=== PATIENT | female | born 1940 | race Caucasian/White ===

== ENCOUNTER 2017-02-09 18:31 | Observation (INO) | payer OTHER, MEDICARE ==
[~2017-02-09] VITALS: Ht 152.4 cm; Wt 62.5 kg
[~2017-02-09 18:31] MED LIST: Aspirin E.C. PO; GLUCAGEN1 MG IM/SC; K-Dur PO; LANTUS 3 M100 UNITS1 SC; LEVOTHYROXINE75 MCG PO; Levothroid,Synthroid PO; Lipitor PO; Lopressor PO; NOVOLOG PE100 UNITS/ SC; PROzac PO; Plavix PO; TYLENOL REGULA325 MG PO; VENLAFAXINE HC150 M1 PO; Zestril,Prinivil PO; Zofran IV
[2017-02-09 19:24] LABS: MCH 32.3 PG (29.0-34.0); MCHC 32.4 G/DL (30.0-36.0); MCV 99.8 FL (83-99); MEAN PLAT.VOLUME 10.7 uM^3 (9.5-12.4); PLATELET COUNT 217 K/uL (156-360); RBC DIS.WIDTH-CV 12.7 % (11.8-14.6); RBC DIS.WIDTH-SD 46.9 % (39-53); RED BLOOD COUNT 4.21 M/uL (3.80-5.20); WHITE BLOOD COUNT 16.5 K/uL (4.1-10.2)
[2017-02-09 19:38] LABS: CHLORIDE 104 mEq/L (99-109); POTASSIUM 4.6 mEq/L (3.7-5.4); SODIUM 137 mEq/L (136-147)
[2017-02-09 19:40] LABS: GLUCOSE 176 mg/dL (70-99)
[2017-02-09 19:41] LABS: ANION GAP 15 MEQ/L (2-14)
[2017-02-09 19:44] LABS: GFR ESTIMATE (CALCULATED) 52 mL/min/
[2017-02-09 19:45] LABS: UREA NITROGEN (BUN) 25 mg/dL (9-23)
[2017-02-09 21:37] LABS: BASOPHIL COUNT 0.1 K/uL (0-0.1); EOSINOPHIL (%) 0.2 % (0-5); IMMATURE GRANULOCYTE (%) 0.4 % (0.0-0.7); IMMATURE GRANULOCYTE COUNT 0.1 K/uL; LYMPHOCYTE COUNT 1.1 K/uL (1.0-2.8); MONOCYTE (%) 6.6 % (3-12); MONOCYTE COUNT 1.1 K/uL (0-0.8); NEUTROPHIL (%) 85.6 % (45-76); NEUTROPHIL COUNT 13.8 K/uL (1.8-6.4)
[2017-02-09 21:50] LABS: TOTAL BILIRUBIN 0.6 mg/dL (0.0-1.0)
[2017-02-09 21:51] LABS: ALKALINE PHOSPHATASE 61 IU/L (3-129)
[2017-02-09 21:53] LABS: DIRECT BILIRUBIN 0.2 mg/dL (0.0-0.3)
[2017-02-09 22:16] LABS: ADD MIUA? YES; BILIRUBIN NEGATIVE; BLOOD SMALL; COLOR YELLOW ((YELLOW)); GLUCOSE (STRIP) NEGATIVE; KETONES 20; LEUKOCYTES NEGATIVE; NITRITE NEGATIVE; PROTEIN (STRIP) NEGATIVE; SPECIFIC GRAVITY 1.023 (1.000-1.030); UROBILINOGEN 0.2 MG/DL (0.2-1.0)
[2017-02-09 22:30] LABS: BACTERIA NONE SEEN /HPF; EPITHELIAL CELLS RARE /HPF; MUCUS 2+ /LPF; RED BLOOD CELLS 0-5 /HPF (0-5); UNCLASSIFIED CASTS 0-5 /LPF; WHITE BLOOD CELLS 0-5 /HPF (0-5)
[2017-02-09 23:37] LABS: SERUM ETHYL ALCOHOL < 10 mg/dL
[2017-02-10] MEDS ORDERED: K-DUR20 MEQ PO (00:27)
[2017-02-10] MEDS ORDERED: SIMVASTATIN40 MG PO (00:29)
[2017-02-10] MEDS ORDERED: GLIMEPIRIDE4 MG PO (00:30)
[2017-02-10] MEDS ORDERED: PLAVIX75 MG PO (00:30)
[2017-02-10] MEDS ORDERED: LEVOTHYROXINE50 MCG PO (00:30)
[2017-02-10] MEDS ORDERED: PROZAC10 MG PO (00:30)
[2017-02-10] MEDS ORDERED: LISINOPRIL5 MG PO (00:31)
[2017-02-10] MEDS ORDERED: DONEPEZIL HCL5 MG PO (00:31)
[2017-02-10] MEDS ORDERED: LOPRESSOR25 MG PO (00:32)
[2017-02-10 01:00] LABS: AMPHETAMINE NEGATIVE (500 ng/mL); BENZODIAZEPINES NEGATIVE (150 ng/mL); COCAINE NEGATIVE (150 ng/mL); METHAMPHETAMINE NEGATIVE (500 ng/mL); OPIATES (MORPHINE) NEGATIVE (100 ng/mL); PHENCYCLIDINE NEGATIVE (25 ng/mL); THC CANNABINOIDS NEGATIVE (50 ng/mL)
[2017-02-10 01:01] LABS: BARBITURATES NEGATIVE (200 ng/mL); INTERNAL CONTROLS VALID? YES; METHADONE NEGATIVE (200 ng/mL); OXYCODONE NEGATIVE (100 ng/mL); PROPOXYPHENE NEGATIVE (300 ng/mL); TRICYCLIC ANTIDEPRESSANTS NEGATIVE (300 ng/mL)
[2017-02-10 02:07] VITALS: BP 154/70
[2017-02-10 05:03] VITALS: BP 145/66
[2017-02-10 07:20] VITALS: BP 137/64
[2017-02-10 07:22] VITALS: BP 132/58
[2017-02-10 07:24] VITALS: BP 124/62
[2017-02-10] MEDS ORDERED: LO-DOSE ASPIRIN81 M2 PO (13:57)
[2017-02-10 15:11] LABS: HDL CHOLESTEROL 41 MG/DL (Desirable>=50); LDL CHOLESTEROL 84 mg/dL (Desirable<100); NON-HDL CHOLESTEROL 102 mg/dL (Desirable<160); TOTAL CHOLESTEROL 143 mg/dL (Desirable<200); TRIGLYCERIDES 91 MG/DL (Normal: <150)
[2017-02-10 16:29] LABS: Estimated Average Glucose 126 mg/dL (70-123)
== END 2017-02-10 15:40 | disposition home or self-care (01) ==
LOC: EME 18:31 → 5WEST 23:26 → EDOF 23:26 → 5WEST 02-10 00:58
PROVIDERS: Emergency Medicine; Internal Medicine
DX: G45.9 Transient cerebral ischemic attack, unspecified (principal); R55 Syncope and collapse; I10 Essential (primary) hypertension; E03.9 Hypothyroidism, unspecified; E78.5 Hyperlipidemia, unspecified; G30.9 Alzheimer's disease, unspecified; F02.80 Dementia in other diseases classified elsewhere, unspecified severity, without behavioral disturbance, psychotic disturbance, mood disturbance, and anxiety; Z86.73 Personal history of transient ischemic attack (TIA), and cerebral infarction without residual deficits
CPT/HCPCS: 70450; 70551; 71020; 80048; 80061; 80076; 81003; 82948; 83036; 83605; 85007; 85025; 85027; 93005; 93880; 99281; 99285; G0378; G0480; J3480; J7040

== ENCOUNTER → 2017-02-27 | Outpatient (CLI) | payer OTHER, MEDICARE ==
[~2017-02-27] MED LIST changes: +DONEPEZIL HCL5 MG PO; +GLIMEPIRIDE4 MG PO; +K-DUR20 MEQ PO; +LEVOTHYROXINE50 MCG PO; +LISINOPRIL5 MG PO; +LO-DOSE ASPIRIN81 M2 PO; +LOPRESSOR25 MG PO; +PLAVIX75 MG PO; +PROZAC10 MG PO; +SIMVASTATIN40 MG PO
== END | disposition home or self-care (01) ==
LOC: EEG 08:57
DX: R55 Syncope and collapse (principal)
CPT/HCPCS: 95819